=== PATIENT | female | born 1995 | race Two or more races ===

== ENCOUNTER 2018-11-26 13:06 | Emergency (ER) | payer OTHER ==
[~2018-11-26] VITALS: Ht 160 cm; Wt 60.3 kg
== END 2018-11-26 18:19 | disposition home or self-care (01) ==
LOC: ER 13:06
DX: R10.2 Pelvic and perineal pain (principal); Z33.1 Pregnant state, incidental

== ENCOUNTER → 2019-06-10 | Outpatient (CLI) | payer OTHER ==
[~2019-06-10] MED LIST: PRENATAL TABLE1 EAC1 PO
== END | disposition home or self-care (01) ==
LOC: PRENATAL 08:00
DX: O26.843 Uterine size-date discrepancy, third trimester (principal); O35.0XX1 Maternal care for (suspected) central nervous system malformation in fetus, fetus 1; O36.5931 Maternal care for other known or suspected poor fetal growth, third trimester, fetus 1; Z3A.34 34 weeks gestation of pregnancy

== ENCOUNTER → 2019-06-17 | Outpatient (CLI) | payer OTHER | END | disposition home or self-care (01) | LOC: PRENATAL 14:15 | DX: O36.8131 Decreased fetal movements, third trimester, fetus 1 (principal); O26.843 Uterine size-date discrepancy, third trimester; O36.5931 Maternal care for other known or suspected poor fetal growth, third trimester, fetus 1 ==

== ENCOUNTER 2019-06-20 21:00 | Inpatient (IN) | payer OTHER ==
[~2019-06-20] VITALS: Ht 160 cm; Wt 1.4 kg
[2019-06-21] MEDS ORDERED: PRENATAL TABLE1 EAC1 PO (19:51)
== END 2019-06-29 14:52 | disposition home or self-care (01) | DRG 788 ==
LOC: OBS/DEL 21:00 → LDR 06-21 19:45 → PRENATAL 06-24 13:30 → OB/GYN 06-26 20:11
PROVIDERS: ADMIT Obstetrics & Gynecology
PROC: 4A1HXFZ Monitoring of Products of Conception, Cardiac Rhythm, External Approach (ICD-10-PCS; 2019-06-26)
PROC: 10D00Z0 Extraction of Products of Conception, High, Open Approach (ICD-10-PCS; principal; 2019-06-26 19:15)
DX: O36.5930 Maternal care for other known or suspected poor fetal growth, third trimester, not applicable or unspecified (principal); O69.81X0 Labor and delivery complicated by cord around neck, without compression, not applicable or unspecified; Z3A.36 36 weeks gestation of pregnancy; Z37.0 Single live birth